=== PATIENT | male | born 2000 | race Two or more races ===

== ENCOUNTER 2022-11-29 07:42 | Emergency (ER) | payer MEDICAID, OTHER ==
[~2022-11-29] VITALS: Ht 172.7 cm; Wt 64.0 kg
[2022-11-29 08:56] VITALS: BP 130/76
[2022-11-29] MEDS ORDERED: CYCL-839 PO (10:05)
[2022-11-29] MEDS ORDERED: IBUP600T28 PO (10:05)
[2022-11-29] MEDS ORDERED: KETOROLAC TROMETH 30 MG/ML 1ML VIAL IM ONE (10:15)
== END 2022-11-29 10:18 | disposition home or self-care (01) ==
LOC: ER 07:42
DX: S46.911A Strain of unspecified muscle, fascia and tendon at shoulder and upper arm level, right arm, initial encounter (principal); X58.XXXA Exposure to other specified factors, initial encounter; Y93.89 Activity, other specified; Y92.89 Other specified places as the place of occurrence of the external cause; Y99.8 Other external cause status
CPT/HCPCS: 72040; 73030; 96372; 99284; J1885